=== PATIENT | male | born 1970 | race Caucasian/White ===

== ENCOUNTER → 2023-02-22 13:15 | Outpatient (BNVA) | payer OTHER, SELFPAY | PROVIDERS: Referring Provider Family Medicine; Visit Provider Orthopaedic Surgery | DX: S43.432A Superior glenoid labrum lesion of left shoulder, initial encounter (principal); X50.0XXA Overexertion from strenuous movement or load, initial encounter | CPT/HCPCS: 73030 ==

== ENCOUNTER 2023-03-30 07:50 | Day surgery (SDC) | payer OTHER, SELFPAY ==
[2023-03-29 11:12] VITALS: BMI 29.5
[2023-03-30] VITALS (11 sets, daily range): BP systolic 150–171; BP diastolic 92–107; PULSE 63–83; RESP 15–18; TEMP 36.1–36.6; O2SAT 90–98
[2023-03-30] MEDS: CELEcoxib 200 mg Capsule 400 MG PO (08:17)
[2023-03-30] MEDS: gabapentin 300 mg Capsule PO (08:17)
[2023-03-30] MEDS: acetaminophen 500 mg Tablet 1000 MG PO (08:17)
[2023-03-30] MEDS: sodium chloride 0.9% 1,000 ML 30 ML IV (08:30)
[2023-03-30] MEDS: HYDROmorphone 1 mg/mL INJ 1 mL 0.5 MG IVP (08:51)
--- NOTE | 2023-03-30 09:44 | W.PM.OPSUD ---
Surgery/Procedure H&P Update DATE OF PROCEDURE: March 30, 2023 DATE H&P PERFORMED: 02/22/23 H&P UPDATE INFORMATION: I have reviewed H&P completed within last 30 days PREOP DIAGNOSIS: Labral tear left shoulder PLANNED PROCEDURE: Operation Date: 03/30/23 10:10 Proposed Procedures p left shoulder arthroscopy with labral repair/ [id number],S43.439A(Left) - Anthony Kearney MD
[2023-03-30] MEDS: ceFAZolin 2,000 MG in sodium chloride 0.9% (plus) 50 ML 100 MG IV (09:53)
--- NOTE | 2023-03-30 10:12 | P.ANESASSM_ITS ---
Pre-Anesthetic Assessment Height/Weight: Height 1.83 m Weight 98.883 kg Temp Pulse Resp BP Pulse Ox O2 Del Method 97.8 F 63 18 158/95 98 Room Air 03/30/23 08:09 03/30/23 08:09 03/30/23 08:09 03/30/23 08:09 03/30/23 08:09 03/30/23 08:09 Preop Diagnosis: Labral tear left shoulder Operation Date: 03/30/23 10:10 Proposed Procedures p left shoulder arthroscopy with labral repair/ [id number],S43.439A(Left) - Anthony Kearney MD Familial anesthetic complications: none Was Beta Caleb taken within 24 hours: N/A Was Clonidine taken within 24 hours: N/A Last intake: Intake Last Liquid Date 03/29/23 Last Liquid Time 21:00 Last Solid Date 03/29/23 Last Solid Time 21:00 Social No alcohol and No tobacco Exam alert, oriented x 3, clear to auscultation bilaterally and regular rate & rhythm Airway Submandibular: within normal limits Cervical ROM: within normal limits Mallampati: Class II Dentition: full Pulmonary Asthma CV/HEM Hypertension Anesthetic Plan ASA status: 2 Anesthesia: General and Regional (specify below) (left interscalene blk) Medications/Allergies Home Medications Medication Instructions Recorded Confirmed Last Taken Type albuterol sulfate 90 mcg/actuation 2 puff inhalation Q6H PRN 02/22/23 03/30/23 Unknown History aerosol inhaler Shortness Of Breath allopurinol 100 mg tablet 100 mg PO DAILY 02/22/23 03/30/23 03/29/23 History lisinopril 20 mg tablet 20 mg PO DAILY 02/22/23 03/30/23 03/29/23 History multivitamin 1 tab PO DAILY 03/29/23 03/30/23 03/29/23 History Allergies Allergy/AdvReac Type Severity Reaction Status Date / Time oxycodone Allergy ADR-Itching Verified 03/29/23 11:05 Current Medications Generic Name Dose Route Start Last Admin Trade Name Freq PRN Reason Stop Dose Admin Hydromorphone HCl 0.5 mg 03/30/23 08:42 03/30/23 08:51 Hydromorphone 1 Mg/Ml Inj 1 Ml IVP 0.5 mg ONCE PRN Administration For preop pain/anxiety Data Anesthesia Cardiac Studies: No Data to Display Anesthesia Procedures Nerve Block Nerve Block 1: Main Anesthesia: general anesthesia Time Out Performed: Yes Consent: requested by attending/covering physician, from patient, risks an d benefits reviewed and patient agrees to proceed Nerve block location: interscalene (left) Anesthesia monitors applied: pulse oximetry, EKG, BP cuff and oxygen Nerve block position: semi sitting Anesthetic Used: ropivicaine 0.5% Amount of anesthesia used (mL): 30 Ultrasound used to: recognize landmarks and visualize and ID brachial plexus Nerve Stimulator Used?: No Interscalene/Femoral BLK: 2 stimuplex 22 g needle used for position and inplane approach Injection: neg aspiration of heme Patient Tolerated Procedure: well Complications: none
[2023-03-30] MEDS: EPINEPHrine 1 mg/mL INJ XX (10:20)
--- NOTE | 2023-03-30 11:27 | P.OP_ITS ---
Operative Report Date of procedure: March 30, 2023 Pre-op diagnosis: Preop Diagnosis Labral tear left shoulder Post-op diagnosis: same Post-op diagnosis: Superior labral tear and impingement left shoulder Procedure done: Arthroscopic assisted biceps tenodesis, debridement superior labrum, subacromial decompression left shoulder Implants: [employer] Q fix x2 Pathology: none sent Surgeon: Anthony Kearney Anesthesia: General Estimated blood loss (mL): 10 Findings: Patient had tearing of the superior labrum centrally from approximately the 10:00 to 2 o'clock position with a unstable peripheral attachment. The glenohumeral joint was free of degenerative changes and no additional labral tearing was identified. The rotator cuff was free of tearing. Spurring was identified over the anterior Condition: stable Disposition: other Brief History: The patient is a 52-year-old with chronic left shoulder pain that began with a injury in 2018. MRI at that time revealed a superior labral tear. The patient had persistent symptoms and elected to proceed with surgical Procedure: The patient was taken to the operating room after he was given a interscalene block. He was provided a general anesthesia. He is prepped and draped in the lateral position with his left arm in 15 pounds of traction. A timeout was performed. A posterior portal was made 2 cm inferior and medial to the posterior corner of the acromion. A scope cannula and trocar were driven into the glenohumeral joint. An 8 mm inflow cannula was placed anteriorly. The glenohumeral arthroscopy was performed. Upon entering the joint large unstable flaps of the labrum were identified superiorly. An incisor shaver and [employer]hew Werewolf probe were used to removing the central 60% of the superior labrum. This brought us back to a poorly attached labrum. A decision was made to proceed with the biceps tenodesis. Utilizing the Lara [employer] Nephew Werewolf probe the biceps was released from the superior labrum. The superior labrum was abraded down to a stable base. The rotator cuff including the superior subscapularis was carefully inspected and found to be free of tearing. Additional labral tearing was not identified, posteriorly, or inferiorly. The undersurface the rotator cuff was inspected and found to be generally intact. The scope was then directed to the subacromial space and a lateral working portal made with a scalpel blade. Through that lateral portal abundant bursal tissue was removed. The bursal rotator cuff was inspected and found to be free of tearing. The undersurface acromion was outlined with a slight anterior curvature identified to the acromion. A 5.5 mm acromionizer was introduced and approximately 4 mm of anterior and inferior acromion were removed. Attention was then focused on the biceps tenodesis. Over the anterior axillary crease of 3 cm long incision was made and dissection carried beneath the pectoralis major to the bicipital groove. The biceps tendon was identified and retracted into the wound. The lower bicipital groove was debrided with cautery. 2 Lara [employer] Nephew Q fix anchors were placed approximately a centimeter apart. 1 loop of suture was passed around the tendon and a luggage tag fashion and the tendon was drawn down to bone and secured with alternating half hitches. This was repeated for the second suture. The proximal biceps tendon was removed with the scissors. The open wound was irrigated with saline. Deep tissues were closed with 2-0 Vi cryl. The skin was closed with interrupted 3-0 Prolene. Portals were closed with 3-0 Prolene. Sterile dressings were applied. The patient was placed in a sling, extubated, and taken to recovery room in stable condition.
--- NOTE | 2023-03-30 11:40 | PC.NURSE ---
Pt arrived to PACU, resting comfortably, denies any pain or nausea at this time. Dressing to left shoulder C/D/I, sling in place. Left hand p/w/d, cap refill <3 seconds, good left radial pulse, able to wiggle fingers. Ice pack applied.
--- NOTE | 2023-03-30 11:58 | PC.NURSE ---
Pt blood pressures are elevated, spoke with Dr Hidalgo and new orders received for Lopressor 5mg IVP, will administer and continue to monitor.
[2023-03-30] MEDS: metoprolol tartrate 1 mg/1 mL SDV 5 mL 5 MG IVP (12:00)
[2023-03-30] MEDS: ondansetron 2 mg/ML SDV 2 mL 4 MG IVP (12:43)
[2023-03-30] MEDS: diphenhydrAMINE 50 mg/mL SDV 1mL 12.5 MG IVP (12:51)
[2023-03-30] MEDS: oxyCODONE 5 mg IR Tab/Cap PO (13:16)
--- NOTE | 2023-03-30 16:10 | ANE.PACU2 ---
Inpatient post-anesthesia follow up: Airway intact: Yes Vital signs: Temperature 97.1 F Pulse Rate 68 Respiratory Rate 18 Blood Pressure 152/92 Pulse Oximetry 93 Oxygen Delivery Me thod Room Air Oxygen Flow Rate Fraction of Inspir ed Oxygen Hydration adequate: Yes Nausea and vomiting: Yes Pain level: 1 Mental status: Baseline
--- NOTE | 2023-04-03 07:05 | W.PM.OPSFHP ---
Same Day Surgery H&P Indication for Procedure/HPI DATE OF PROCEDURE: April 03, 2023 CHIEF COMPLAINT/INDICATIONFOR SURGICAL PROCEDURE: Left shoulder pain PREOP DIAGNOSIS: Labral tear left shoulder PLANNED PROCEDURE: Operation Date: 03/30/23 10:10 Proposed Procedures p left shoulder arthroscopy with labral repair/ [id number],S43.439A(Left) - Anthony Kearney MD New 52 year old male here for left shoulder arthroscopy. He describes originally injuring this in [place].? In 2018 he was building a house and supporting trusses over head.? He describes the truss being caught by wind and straining both shoulders.? He failed a program of physical therapy with both arms.? He ultimately was sent for bilateral MRIs revealing SLAP tears in both shoulders.? He brings in the report here with him.? He states he underwent repair of the right in 2018 he describes a difficult recovery but ultimately did well.? He states as he approached time to get the left shoulder done COVID became an issue and he has put it off until now.? He describes continued pain in the shoulder.? Pain typically is in the anterior and lateral aspect.? He describes it worse with extremes of motion.? He describes pain with any strenuous use.? He still is quite active.? He is an avid crys and he finds these activities difficult due to left shoulder pain.? Has a history of problems with his a cervical spine and has received injections in the past there.? He describes some increasing neck pain but states this feels different than what he feels in the shoulder. Medications/Allergies* Home Medications Medication Instructions Recorded Confirmed Type albuterol sulfate 90 mcg/actuation 2 puff inhalation Q6H PRN 02/22/23 03/30/23 History aerosol inhaler Shortness Of Breath allopurinol 100 mg tablet 100 mg PO DAILY 02/22/23 03/30/23 History lisinopril 20 mg tablet 20 mg PO DAILY 02/22/23 03/30/23 History multivitamin 1 tab PO DAILY 03/29/23 03/30/23 History Allergies/Adverse Reactions Allergy/AdvReac Type Severity Reaction Status Date / Time No Known Allergies Allergy Verified 03/30/23 11:54 Pertinent Exam Findings alert, oriented x 3, clear to auscultation bilaterally, regular rate & rhythm and operative site marked SHOULDER LEFT: No tenderness ?RANGE OF MOTION:? EXAMINED EXTREMITY ? Flexion: 160 ? External Rotation: 60 ? Internal Rotation: T12 ? Abduction External Rotation:60 ? Abduction Internal Rotation ?60 ? Pain with extremes of motion ?INSTABILITY:? ?Pain with apprehension or jerk testing.? Woodbury's test for labral pathology biceps tension test positive ?ROTATOR CUFF STRENGTH: ? EXAMINED EXTREMITY ? Abduction Supination: Good without pain ? Abduction Pronation: Good without pain ? External Rotation: Good without pain ? [place]: Negative: Pertinent Data MRI report of the left shoulder dated 01/04/2018.? The patient has tear of his superior glenoid labrum from anterior to posterior consistent with a SLAP tear.? He has a flat acromion.? There is moderate degenerative changes acromioclavicular joint.? There is subacromial bursitis but his rotator cuff is intact. Recommendations Surgery/Procedure today Coding Level of Care Code Acute Code for Chg Fwd Diagnoses
== END 2023-03-30 13:45 | disposition home or self-care (01) ==
PROVIDERS: Visit Provider Orthopaedic Surgery
PROC: (CPT 29805; principal; 2023-03-30 09:50)
PROC: (CPT 29826; 2023-03-30 09:50)
DX: S43.432A Superior glenoid labrum lesion of left shoulder, initial encounter (principal); X58.XXXA Exposure to other specified factors, initial encounter; J45.909 Unspecified asthma, uncomplicated; I10 Essential (primary) hypertension
CPT/HCPCS: 29826; 29828; C1713; J0171; J0690; J1100; J1170; J1200; J2405; J2704; J2795; J3010; J3490; J7030

== ENCOUNTER → 2023-09-28 14:52 | Outpatient (BNVA) | payer OTHER, SELFPAY | PROVIDERS: Visit Provider Student in an Organized Health Care Education/Training Program | DX: G56.22 Lesion of ulnar nerve, left upper limb; M79.642 Pain in left hand | CPT/HCPCS: 73080 ==

== ENCOUNTER 2023-12-20 08:12 | Day surgery (SDC) | payer OTHER, SELFPAY ==
[2023-12-20] VITALS (9 sets, daily range): BP systolic 133–165; BP diastolic 98–104; PULSE 68–76; RESP 8–18; TEMP 36.2–36.5; O2SAT 94–100
--- NOTE | 2023-12-20 08:51 | W.PM.OPSUD ---
Surgery/Procedure H&P Update DATE OF PROCEDURE: December 20, 2023 DATE H&P PERFORMED: 11/21/23 H&P UPDATE INFORMATION: I have reviewed H&P completed within last 30 days, I have examined patient prior to procedure and No changes to prior documentation PREOP DIAGNOSIS: Left carpal tunnel syndrome, left cubital tunnel syndrome PRIMARY INDICATION FOR PROCEDURE: Left carpal tunnel syndrome, left cubital tunnel syndrome PLANNED PROCEDURE: Operation Date: 12/20/23 09:55 Proposed Procedures p Left Carpal Tunnel Release(Left) - Melecio Villanueva DO s Left Cubital Tunnel Release(Left) - DO herbie Bautista Left PossibleUlnar Nerve Transposition(Left) - Melecio Villanueva DO
--- NOTE | 2023-12-20 08:53 | P.ANESASSM_ITS ---
Pre-Anesthetic Assessment Height/Weight: Height 1.83 m Temp Pulse Resp BP Pulse Ox O2 Del Method 97.5 F L 69 18 146/104 99 Room Air 12/20/23 08:37 12/20/23 08:37 12/20/23 08:37 12/20/23 08:37 12/20/23 08:37 12/20/23 08:37 Operation Date: 12/20/23 09:55 Proposed Procedures p Left Carpal Tunnel Release(Left) - Melecio Kay, DO s Left Cubital Tunnel Release(Left) - Melecio Clearfield, DO s Left PossibleUlnar Nerve Transposition(Left) - Melecio Clearfield, DO Familial anesthetic complications: None Was Beta Caleb taken within 24 hours: N/A Was Clonidine taken within 24 hours: N/A Last intake: > 8hrs Social No alcohol and No tobacco Exam alert, oriented x 3, clear to auscultation bilaterally and regular rate & rhythm Airway Mallampati: Class II Dentition: full Pulmonary Asthma CV/HEM Hypertension Anesthetic Plan ASA status: 2 Anesthesia: MAC Risk of > 500 ml blood loss (7ml/kg in children): No Medications/Allergies Home Medications Medication Instructions Recorded Confirmed Last Taken Type albuterol sulfate 90 mcg/actuation 2 puff inhalation Q6H PRN 02/22/23 12/19/23 11/19/23 History aerosol inhaler Shortness Of Breath allopurinol 100 mg tablet 100 mg PO DAILY 02/22/23 12/19/23 12/19/23 History lisinopril 20 mg tablet 20 mg PO DAILY 02/22/23 12/19/23 12/19/23 History multivitamin 1 tab PO DAILY 03/29/23 12/19/23 12/19/23 History Allergies Allergy/AdvReac Type Severity Reaction Status Date / Time No Known Allergies Allergy Verified 11/21/23 14:39 [facility] Anesthesia Social History (Updated 11/21/23 @ 14:42 by Brisa Hernandez LPN) Smoking and tobacco/nicotine status: former use of tobacco/nicotine Alcohol intake: never Data Anesthesia Cardiac Studies: No Data to Display
[2023-12-20] MEDS: acetaminophen 1,000 MG/100 ML PIGGYBACK 400 MG IV (09:23)
[2023-12-20] MEDS: sodium chloride 0.9% 1,000 ML 30 ML IV (09:24)
[2023-12-20] MEDS: ceFAZolin 2,000 MG in sodium chloride 0.9% (plus) 50 ML 100 MG IV (09:35)
[2023-12-20] MEDS: lidocaine-epi 1% 20 mL INJ 5 ML INJECTION (10:02)
[2023-12-20] MEDS: ROPivacaine 0.5% SDV 30 mL 25 MG INJECTION (10:02)
--- NOTE | 2023-12-20 10:58 | W.PM.BPON ---
Date of Procedure: 12/20/2022 Surgeon: Melecio Villanueva DO Lead Sustainability Specialist(s): ELVIS Stephens Procedure(s) performed: Left carpal tunnel release Left cubital tunnel release Left ulnar nerve transposition Findings of the procedure(s): Patient was found to have left carpal tunnel syndrome as well as left cubital tunnel syndrome with a subluxating ulnar nerve underwent left carpal tunnel release left cubital tunnel release and left ulnar nerve transposition procedure went as planned without complications or issues was placed in a cubital tunnel premade splint taken back in stable condition Estimated blood loss: 10 mL Specimen(s) removed: None Post-operative diagnosis: Left carpal tunnel syndrome, left cubital tunnel syndrome with subluxating ulnar nerve
--- NOTE | 2023-12-20 11:01 | P.OP_ITS ---
Operative Report Date of procedure: December 20, 2023 Surgeon: Melecio Villanueva DO Insolvency Practitioner: Juventino Villanueva PA-C: PA was necessary for assistance in this case with hand positioning to execute the procedure, retraction and protection of neurovascular structures as well as to assist with wound closure and dressing application. Procedure: Pre-op diagnosis: Left Carpal Tunnel Syndrome Left cubital tunnel syndrome Surgeon: Melecio Villanueva DO Procedure: Postop Diagnosis: Same, subluxating ulnar nerve Procedure done: Left carpal tunnel release Left?cubital?tunnel tunnel release (ulnar nerve decompression at elbow) Left Elbow Ulnar Nerve Transposition Surgeon: Melecio Villanueva DO Estimated blood loss: 10 mL Tourniquet? 47 minutes IV fluids: 600 mL Complications: None Findings: See operative report narrative Condition: stable Disposition: same day Brief History: Patient's been seen and worked up in the outpatient setting and findings c onsistent with preoperative diagnosis.? Patient has Left carpal tunnel syndrome as well as Left?cubital?tunnel syndrome which has been worked up in the outpatient setting has physical exam findings consistent with this as well as confirmatory nerve conduction/EMG nerve conduction study consistent with diagnosis.? Patient's failed conservative treatment.? As result through shared decision making agreed to proceed with? Left carpal tunnel and Left?cubital?tunnel release we talked about treatment options as far as nonoperative and operative intervention.? Understands risk benefits complication alternatives surgical nonsurgical treatment options.? Understanding his risks he agrees to proceed with surgical intervention. Understanding these risks he agrees to proceed with surgery.? Consent obtained in office. Procedure: Patient seen evaluate in the preoperative holding area.? Consent was reviewed and signed with patient.? Correct extremity marked.? Patient seen evaluated by anesthesia department once cleared for surgery was then taken back to the operative suite placed in supine position all bony prominences well-padded patient properly secured to bed.? Left upper extremity placed onto armboard.? Nonsterile tourniquet applied Left upper arm.? Patient then underwent anesthesia per the anesthesia department.? Patient's Left upper extremity was then prepped and draped in standard orthopedic fashion.? Final timeout performed.? Patient received appropriate preoperative antibiotics. Esmarch was used exsanguinate the Left upper extremity.? Tourniquet was insufflated to 250 mmHg. I started with the carpal tunnel release first.? I made a standard open carpal tunnel release starting with the distal most extent in the palm at the Gomez's cardinal line and the incision line was made in line with the fourth ray and ended just distal to the wrist crease.? Sharp scalpel incision was made through skin and subcutaneous tissue I then utilizing self retainer then began to dissect with dissection scissors split longitudinally the palmar fascia.? Next I then utilizing my assistant librarian Kasdacedrick retractors subsequently utilizing scalpel feathered through the palmaris brevis as well as through the transverse carpal ligament distally.? Once I encountered the floor of the transverse carpal ligament and entered into the carpal tunnel I then switched to dissection scissors.? Carefully released the distal extent of the transverse carpal ligament to the palmar fat.? Care was to protect the recurrent branch and not injured this during this part of the case.? Next I then placed a [place] underneath the transverse carpal ligament proximally to protect the nerve in the carpal tunnel contents.? And then I subsequently under loupe magnification utilize my dissection scissors to release the transverse carpal ligament into the antebrachial fascia under direct visualization with care to keep my scissors with a curved ulnarly away from the palmar cutaneous branch.? The transverse carpal was then completely decompressed proximally and a [place] was then placed both distally and proximally throughout the carpal tunnel and had complete decompression of the nerve.? The nerve did appear to have hourglass shape as it went through the carpal tunnel.? With significant irritation noted around the nerve.? No masses were noted within the contents of the carpal tunnel.? This completed the carpal tunnel release and then I subsequently irrigated the wound bed and placed a wet Ray-Rosa into the incision for later closure. Next marked out the landmarks of the Left elbow of the medial epicondyle and olecranon and made a curvilinear incision following the course of the ulnar nerve at the medial aspect of the elbow.? Sharp scalpel incision was made through skin and subcutaneous tissue.? Next I switched to Littler dissection scissors and spread in plane of the medial antebrachial cutaneous nerve branching which was protected throughout this part of the dissection.? Then I directly came down over the fascia and identified the 2 heads of the FCU fascia and split this Left in the middle and subsequently identified my ulnar nerve distally.? This was then completely released distally under direct visualization and loupe magnification.? Once the nerve was then identified I then subsequently tracked this proximally and released this through Max's ligament as well as complete decompression of the nerve proximally all the way past the intermuscular septum.? The nerve was completely released and decompressed both proximally and distally.? Ulnar nerve neurolysis performed and completed both proximally and distally with dissection scissors.? At this point in time the in situ release was completed I then subsequently took the elbow through range of motion and subluxation was noted over the medial epicondyle and plan for ulnar nerve transposition was made.? ?I thoroughly irrigated the nerve throughout the case to prevent it from drying out. Of note the ulnar nerve had significant irritation and inflammation.? Next while protecting the nerve as well as care to not injure any venous structures I then excised the intermuscular septum proximally with bipolar electrocautery.? This allowed for there to be no entrapment proximally with my transposition.? Next I then performed my standard Z- flap into the fascia.? This created a large thick fascial band that would be sutured to secure the ulnar nerve when its been transposed.? Once the incision was made just through the fascia I then mobilized just the fascia and freed the muscle belly off of this.? I then sequentially e xcised the T and Y shaped fascial bands throughout the flexor pronator mass to prevent any type of bandage strip structure irritating the transposition.? At this point I had only soft tissue and muscle belly with which the ulnar nerve could rest.? I had to do a small excision of the muscle belly distally to create a nice trough for the nerve to lie.? At this point I then mobilized the nerve and this was transposed into the flexor pronator insertion under the fasica flaps.? There was no evidence of kinking/tethering of the nerve.? this was significantly redundant and lax with no signs of tension or entrapment.? I then utilized a 3-0 Ethibond suture and approximated the fascia flaps that was created and the Left knee okay okay secured with horizontal interrupted mattress stitches.? I was able to place 2 fingers under the repair with no evidence of entrapment and the elbow was taken through range of motion and no areas of entrapment or kinking were noted on the nerve and the nerve was redundant relaxed in all ranges of motion.? This completed my ulnar nerve decompression of the?cubital?tunnel as well as ulnar nerve transposition.? Wound bed was then thoroughly irrigated.? Tourniquet was deflated.? Maintained exact hemostasis with bipolar electrocautery.? I did place a tanya drain to prevent hematoma formation. As result the skin was reapproximated with interrupted Vicryl subcuta neous suture 3-0.? I next utilized a running horizontal mattress stitch with 3-0 nylon.? Extremity was then cleaned and the incision was then covered with Xeroform 4 x 4's ABD Curlex and soft roll and a posterior long-arm splint was then applied with an Terrance wrap.? Patient was then awakened from anesthesia and taken to PACU in stable condition. Disposition: Patient taken to PACU in stable condition.? Patient given appropriate discharge instructions as well as pain medication.? We will get Patient in with OT hand therapy for splint takedown dressing change and drain pull in the next couple days. Pt to maintain splint for a total of 10-14 days then may begin OT hand therapy for ROM and nerve glide exercises. Patient will see me in office in 2 weeks.? pt understands? if they has any questions they can contact the office.
[2023-12-20] MEDS: fentaNYL 50 mcg/mL INJ 2mL IVP (11:20)
--- NOTE | 2023-12-20 11:21 | P.PCN_ITS ---
PACU note Narrative: 53-year-old male that underwent a left c arpal tunnel and left cubital tunnel release with ulnar nerve transpositions. elbow splint on left arm and dressing is dry and intact. Patient transferred to PACU in stable condition. Pain is well controlled. Patient's fingers are warm and well-perfused. Patient can wiggle fingers. normal cap refill under 2 seconds. Patient has normal elbow range of motion. Unable to assess sensation due to residual localized anesthetic. Exam: awake Disposition: discharged
--- NOTE | 2023-12-20 11:45 | ANE.PACU2 ---
Inpatient post-anesthesia follow up: Airway intact: Yes Vital signs: Temperature 97.2 F Pulse Rate 72 Respiratory Rate 16 Blood Pressure 157/103 Pulse Oximetry 96 Oxygen Delivery Me thod Room Air Oxygen Flow Rate 6 Fraction of Inspir ed Oxygen Hydration adequate: Yes Nausea and vomiting: No Pain level: 1 Mental status: Baseline
[2023-12-20] MEDS: HYDROcodone-acetaminophen 7.5-325 mg Tablet 1 TAB PO (11:54)
[2023-12-20] MEDS: ketorolac 30 mg/mL INJ IVP (11:55)
== END 2023-12-20 13:10 | disposition home or self-care (01) ==
PROVIDERS: PCP Family Medicine; Visit Provider Student in an Organized Health Care Education/Training Program
PROC: (CPT 64721; principal; 2023-12-20 09:45)
PROC: (CPT 64718; 2023-12-20 09:45)
PROC: (CPT 64718; 2023-12-20 09:45)
DX: G56.02 Carpal tunnel syndrome, left upper limb (principal); G56.22 Lesion of ulnar nerve, left upper limb; J45.909 Unspecified asthma, uncomplicated; I10 Essential (primary) hypertension; Z87.891 Personal history of nicotine dependence
CPT/HCPCS: 64718; 64721; J0131; J0690; J1100; J1885; J2250; J2405; J2704; J2795; J3010; J7030

== ENCOUNTER 2023-12-22 06:00 | Outpatient (CLI) | payer OTHER, SELFPAY | END 2023-12-22 06:01 | LOC: SOT 12-25 10:41 | PROVIDERS: Visit Provider Student in an Organized Health Care Education/Training Program | DX: Z46.89 Encounter for fitting and adjustment of other specified devices (principal); G56.22 Lesion of ulnar nerve, left upper limb; G56.02 Carpal tunnel syndrome, left upper limb | CPT/HCPCS: 97530 ==

== ENCOUNTER 2024-01-05 11:51 | Outpatient (RCR) | payer OTHER, SELFPAY | END 2024-01-18 23:59 | disposition home or self-care (01) | LOC: SOT 11:51 | PROVIDERS: PCP Family Medicine; Visit Provider Student in an Organized Health Care Education/Training Program | DX: Z47.89 Encounter for other orthopedic aftercare (principal) | CPT/HCPCS: 97110; 97140; 97165 ==

== ENCOUNTER → 2024-05-09 08:41 | Outpatient (BNVA) | payer OTHER, SELFPAY | PROVIDERS: PCP Family Medicine; Referring Provider Family Medicine; Visit Provider Orthopaedic Surgery | DX: M54.50 Low back pain, unspecified (principal); M54.9 Dorsalgia, unspecified | CPT/HCPCS: 72110 ==

== ENCOUNTER 2024-06-05 07:15 | Outpatient (CLI) | payer OTHER, SELFPAY ==
--- NOTE | 2024-06-05 06:59 | XRR_ITS ---
PROCEDURE INFORMATION: Exam: XR Bilateral Eye for Foreign Body, MR Screening Exam date and time: 06/05/2024 7:02 AM Age: 54 years old Clinical indication: Screening exam; Mri clearence TECHNIQUE: Imaging protocol: XR of the bilateral eye for foreign body. Exam was performed for MR screening. COMPARISON: MR cervical spin wo con* [id number] 01/04/2018 12:00 AM FINDINGS: Sinuses: Well aerated. No opacification. Bones/joints: No fracture. Soft tissues: Moderate bilateral maxillary mucosal thickening. Radiopaque device or foreign body: No evidence of device or foreign body. No visible contraindication to MRI. XR/[place] [id number] IMPRESSION: No visible contraindication to MRI on this exam.
--- NOTE | 2024-06-05 07:15 | MR_ITS ---
WS: [id number] MRI LUMBAR SPINE NONCONTRAST HISTORY: back pain COMPARISON: None available. TECHNIQUE: Sagittal and axial multisequence imaging is submitted. Normal lumbar alignment. Mild anterior wedging of L1 is chronic. No acute fractures or marrow edema. Disc spaces and vertebral body heights are well-preserved. Conus terminates normally at L1-2 disc level. L1-L2: Normal. L2-L3: Very mild disc bulging. Minimal subarticular recess encroachment. L3-L4: Mild diffuse annular disc bulging with osteophytic ridging. Moderate facet and ligamentum flav um hypertrophy. Encroachment on flattening the ventral thecal sac and narrowing of the subarticular r ecesses. Mild contact on the traversing L4 nerve roots. Mild to moderate central with bilateral subar ticular recess and foraminal stenosis. L4-L5: Diffuse mild annular disc bulging with osteophytic ridging and a central disc protrusion. Liga mentum flavum and facet arthritis. Moderate central with bilateral subarticular recess and mild to mo derate foraminal stenosis. Disc encroachment into the subarticular recesses and traversing L5 nerve r oots. L5-S1: Diffuse annular disc bulging with a central disc protrusion. Central disc protrusion contacts the S1 nerve roots bilaterally but greatest on the RIGHT. Moderate bilateral foraminal stenosis with mild central and subarticular recess stenosis. MR/MR lumbar spine wo con* [id number] IMPRESSION: 1. L4-5: Central disc protrusion with disc bulging and facet arthropathy. Resu lting in moderate central with bilateral subarticular recess and mild to modera te foraminal stenosis. Disc encroaching upon the traversing L5 nerve roots. 2. L5-S1: Moderate size central disc protrusion contacts the S1 nerve roots, g reatest on the RIGHT. Moderate bilateral foraminal stenosis with mild central a nd subarticular recess stenosis. 3. L3-4: Mild to moderate central with bilateral subarticular recess and arias inal stenosis. Mild disc contact on the traversing L4 nerve roots. 4. Chronic L1 anterior wedge fracture by 10%.
== END 2024-06-05 07:16 | disposition home or self-care (01) ==
PROVIDERS: PCP Family Medicine; Visit Provider Orthopaedic Surgery
DX: M51.36 Other intervertebral disc degeneration, lumbar region (principal); M25.78 Osteophyte, vertebrae; M47.816 Spondylosis without myelopathy or radiculopathy, lumbar region; M48.061 Spinal stenosis, lumbar region without neurogenic claudication; M51.37 Other intervertebral disc degeneration, lumbosacral region; M48.07 Spinal stenosis, lumbosacral region; M48.56XA Collapsed vertebra, not elsewhere classified, lumbar region, initial encounter for fracture
CPT/HCPCS: 70030; 72148

== ENCOUNTER → 2024-10-01 09:04 | Outpatient (BNVA) | payer OTHER, SELFPAY | PROVIDERS: PCP Family Medicine; Visit Provider Orthopaedic Surgery | DX: Z98.890 Other specified postprocedural states; M48.062 Spinal stenosis, lumbar region with neurogenic claudication; S46.219A Strain of muscle, fascia and tendon of other parts of biceps, unspecified arm, initial encounter; X58.XXXA Exposure to other specified factors, initial encounter | CPT/HCPCS: 36415; 80053; 81001; 85025 ==

== ENCOUNTER 2024-11-08 08:41 | Day surgery (SDC) | payer OTHER, SELFPAY ==
[2024-11-08] VITALS (11 sets, daily range): BP systolic 145–169; BP diastolic 87–105; PULSE 54–72; RESP 11–24; TEMP 36.1–36.6; O2SAT 93–99; BMI 28.7
--- NOTE | 2024-11-08 09:06 | W.PM.OPSFHP ---
Same Day Surgery H&P Indication for Procedure/HPI DATE OF PROCEDURE: November 08, 2024 CHIEF COMPLAINT/INDICATIONFOR SURGICAL PROCEDURE: Back and leg pain PREOP DIAGNOSIS: Lumbar stenosis with neurogenic claudication PLANNED PROCEDURE: Operation Date: 11/08/24 09:10 Proposed Procedures p Lumbar Spine Decompression Lumbar Decompression(Not Applicable) - Enrique Prakash DO Medications/Allergies* Home Medications Medication Instructions Recorded Confirmed Type albuterol sulfate 90 mcg/actuation 2 puff inhalation Q6H PRN 02/22/23 11/07/24 History aerosol inhaler Shortness Of Breath allopurinol 100 mg tablet 100 mg PO DAILY 02/22/23 11/07/24 History lisinopril 20 mg tablet 20 mg PO DAILY 02/22/23 11/07/24 History cyclobenzaprine 10 mg tablet 10 mg PO TID PRN Pain (Scale Score 05/09/24 11/07/24 History 4-6) Allergies/Adverse Reactions Allergy/AdvReac Type Severity Reaction Status Date / Time No Known Allergies Allergy Verified 11/07/24 14:23 Pertinent History/Comorbid Conditions* Social History Smoking and tobacco/nicotine status: never used tobacco/nicotine Alcohol intake: never Pertinent Exam Findings alert, oriented x 3 and procedure specific exam findings Recommendations Surgery/Procedure today Coding Level of Care Code Acute Code for Chg Fwd
[2024-11-08] MEDS: sodium chloride 0.9% 1,000 ML 30 ML IV (09:10)
[2024-11-08] MEDS: ceFAZolin 2,000 mg SDV 2000 MG IVP (09:18)
--- NOTE | 2024-11-08 09:34 | ANES.PREANE2 ---
Pre-Anesthetic Assessment Height/Weight: Height 6 ft Weight 212 lb Temp Pulse Resp BP Pulse Ox O2 Del Method 97.1 F L 72 18 169/105 99 Room Air 11/08/24 09:12 11/08/24 09:12 11/08/24 09:12 11/08/24 09:12 11/08/24 09:12 11/08/24 09:12 Preop Diagnosis: Lumbar stenosis with neurogenic claudication Operation Date: 11/08/24 09:10 Proposed Procedures p Lumbar Spine Decompression Lumbar Decompression(Not Applicable) - Enrique Prakash, DO Was Beta Caleb taken within 24 hours: N/A Was Clonidine taken within 24 hours: N/A Last intake: Intake Last Liquid Date 11/07/24 Last Liquid Time 22:00 Last Solid Date 11/07/24 Last Solid Time 22:00 Social No alcohol and No tobacco Quit years ago Exam alert, oriented x 3, clear to auscultation bilaterally and regular rate & rhythm Airway Submandibular: within normal limits Cervical ROM: within normal limits Mallampati: Class II Dentition: full Anesthetic Plan ASA status: 2 Anesthesia: General Other: No prior issues with anesthesia NPO since yesterday History of hypertension on lisinopril. Preop BP 169/105 Prior history of asthma, not on any chronic inhalers Labs 10/01/2024 reviewed and schedule for procedure Plan for GETA Medications/Allergies Home Medications Medication Instructions Recorded Confirmed Last Taken Type albuterol sulfate 90 mcg/actuation 2 puff inhalation Q6H PRN 02/22/23 11/07/24 10/20/24 History aerosol inhaler Shortness Of Breath allopurinol 100 mg tablet 100 mg PO DAILY 02/22/23 11/07/24 11/07/24 History lisinopril 20 mg tablet 20 mg PO DAILY 02/22/23 11/07/24 11/07/24 History cyclobenzaprine 10 mg tablet 10 mg PO TID PRN Pain (Scale Score 05/09/24 11/07/24 07/31/24 History 4-6) Allergies Allergy/AdvReac Type Severity Reaction Status Date / Time No Known Allergies Allergy Verified 11/07/24 14:23 Current Medications Generic Name Dose Route Start Last Admin Trade Name Freq PRN Reason Stop Dose Admin Sodium Chloride 1,000 mls @ 30 mls/hr 11/08/24 08:45 11/08/24 09:10 Sodium Chloride 0.9% IV 11/09/24 08:44 30 mls/hr .Q24H ALEN Administration PFSH Anesthesia Social History Smoking and tobacco/nicotine status: never used tobacco/nicotine Alcohol intake: never Data Anesthesia Cardiac Studies: No Data to Display
[2024-11-08] MEDS: lidocaine-epi 1% 20 mL INJ INJECTION (09:42)
--- NOTE | 2024-11-08 10:23 | XR_ITS ---
WS: [id number] C-ARM RADIOGRAPHS LUMBAR SPINE; 3 IMAGES HISTORY: OR PICS COMPARISON: None available. Intraoperative imaging during spinal fusion procedure. Markers indicating the L5-S1 level and L4-5 le vels. No lateralization on the images. XR/XR lumbar spine 2-3V* [id number] IMPRESSION: Intraoperative imaging during spinal fusion.
[2024-11-08] MEDS: fentaNYL 50 mcg/mL INJ 2mL IVP (10:50)
--- NOTE | 2024-11-08 10:50 | PM.OP ---
Operative Report Date of procedure: November 08, 2024 Pre-op diagnosis: Lumbar stenosis neurogenic claudication Post-op diagnosis: same Procedure done: 1. L4/5 laminectomy with partial facetectomy 2. L5/S1 laminectomy with partial facetectomy Surgeon: Enrique Prakash DO Estimated blood loss (mL): 5 Procedure: 1. L4/5 laminectomy with partial facetectomy 2. L5/S1 laminectomy with partial facetectomy Patient is brought to the operative suite. After undergoing anesthesia they are placed in the prone position. All areas of impingement are well padded. Patient is then prepped and draped in the normal sterile fashion. A skin incision is made over the L4-5 level. This is confirmed under c-arm guidance. A series of dilators are passed and the tubular retractor is docked on the L4 lamina. A bovie is used to clear the soft tissue off the lamina and the L 4/5 facet joint. A high speed deisi is then used to perform the laminectomy and take down the medial aspect of the L 4/5 facet joint. A kerrison rongeure was then used to take down the remaining lamina and smooth the edge of the laminectomy up to the point where the ligamentum flavum attaches. Attention was then brought to the medial aspect of the facet joint. The remaining medial aspect of the superior and inferior aspect of the facet joint were taken down with the kerrison from the pedicle of L4 to L 5. The facet joint had significant hypertrophy. Attention was then brought to the Ligamentum Flavum. The ligament was taken down from the lamina of L4 to L5 and out medially to the remaining facet joint. The ligament was thick. The dura was then exposed. The dura was in good repair. The L4 nerve was then traced with a curette out the L4/5 foramen and found to be adequately decompressed. The L5 nerve was traced with a curette around the L5 pedicle. The lateral recess was opened with a kerrison helping to further decompress the L5 nerve. Wound is then irrigated copiously with saline and surgiflo is used to stop any bleeding. The tubular retractor is removed A skin incision is made over the L5-S1 level. This is confirmed under c-arm guidance. A series of dilators are passed and the tubular retractor is docked on the L4 lamina. A bovie is used to clear the soft tissue off the lamina and the L 5/1 facet joint. A high speed deisi is then used to perform the laminectomy and take down the medial aspect of the L 5/1 facet joint. A kerrison rongeure was then used to take down the remaining lamina and smooth the edge of the laminectomy up to the point where the ligamentum flavum attaches. Attention was then brought to the medial aspect of the facet joint. The remaining medial aspect of the superior and inferior aspect of the facet joint were taken down with the kerrison from the pedicle of L5 to S1. The facet joint had significant hypertrophy. Attention was then brought to the Ligamentum Flavum. The ligament was taken down from the lamina of L5 to S1 and out medially to the remaining facet joint. The ligament was thick. The dura was then exposed. The dura was in good repair. The L5 nerve was then traced with a curette out the L5/S1 foramen and found to be adequately decompressed. The S1 nerve was traced with a curette around the S1 pedicle. The lateral recess was opened with a kerrison helping to further decompress the S1 nerve. Wound is then irrigated copiously with saline and surgiflo is used to stop any bleeding. The tubular retractor is removed and the wound is closed with vicryl and monocryl suture. Glue is then used to protect the wound. A sterile dressing is then placed. Patient was then placed in the supine position and transferred to the PACU in stable condition.
[2024-11-08] MEDS: HYDROcodone-acetaminophen 5-325 mg Tablet 1 TAB PO (11:30)
--- NOTE | 2024-11-08 12:07 | ANE.PACU2 ---
Inpatient post-anesthesia follow up: Airway intact: Yes Vital signs: Temperature 97.0 F Pulse Rate 54 Respiratory Rate 18 Blood Pressure 153/96 Pulse Oximetry 99 Oxygen Delivery Me thod Room Air Oxygen Flow Rate Fraction of Inspir ed Oxygen Hydration adequate: Yes Nausea and vomiting: No Pain level: 1 Mental status: Baseline
== END 2024-11-08 12:07 | disposition home or self-care (01) ==
PROVIDERS: PCP Family Medicine; Visit Provider Orthopaedic Surgery
PROC: (CPT 63005; principal; 2024-11-08 09:00)
DX: M48.062 Spinal stenosis, lumbar region with neurogenic claudication (principal); I10 Essential (primary) hypertension; J45.909 Unspecified asthma, uncomplicated
CPT/HCPCS: 63047; 63048; 72100; 76000; J0131; J0690; J1100; J2405; J2704; J2710; J3010; J3490; J7030

== ENCOUNTER 2024-11-27 11:30 | Outpatient (CLI) | payer OTHER, SELFPAY ==
--- NOTE | 2024-11-27 11:45 | MR_ITS ---
WS: [id number] MRI LEFT SHOULDER NONCONTRAST TECHNIQUE: Sagittal T2, coronal T1, T2 and proton density imaging. Axial gradient PDE imaging. CLINICAL INFORMATION: post op left shoulder arthroscopy biceps injury/strain COMPARISON: MRI 2018 FINDINGS: Subacromial decompression with good preservation of the subacromial space. Moderate degenerative arth ritis of the AC joint with a small amount of fluid and edema. Mild tendinopathy supraspinatus. Normal infraspinatus. Normal teres minor. Subscapularis tendon appears normal. Biceps tendon absent from th e bicipital groove. Intra-articular biceps tendon appears intact. Glenoid labrum appears grossly norm al. Moderate degenerative narrowing of the glenohumeral articulation. Normal bone marrow signal in t he humeral head and glenoid. No other acute findings. MR/MR shoulder LT wo con* [id number] IMPRESSION: 1. Subacromial decompression with good preservation of the subacromial space. 2. Slight tendinopathy distal supraspinatus. Rotator cuff is otherwise normal in appearance. 3. Biceps tendon absent from the bicipital groove presumably due to prior teno desis. Intra-articular biceps tendon appears intact. 4. Mild degenerative narrowing at the AC joint with small amount of fluid and edema. 5. No other acute findings.
== END 2024-11-27 11:31 | disposition home or self-care (01) ==
LOC: RAD 11:33
PROVIDERS: PCP Family Medicine; Visit Provider Student in an Organized Health Care Education/Training Program
DX: M75.22 Bicipital tendinitis, left shoulder (principal); Z98.890 Other specified postprocedural states; M19.012 Primary osteoarthritis, left shoulder; R93.6 Abnormal findings on diagnostic imaging of limbs
CPT/HCPCS: 73221